=== PATIENT | female | born 1955 | race Asian ===

== ENCOUNTER → 2016-08-03 | Outpatient (CLI) | payer MEDICARE, OTHER ==
[~2016-08-03] MED LIST: ALENDRONATE SOD10 MG; DULOXETINE HCL60 MG PO; ENDOCET 5-3251 EACH PO; HYDROCODONE; LIPITOR40 MG PO; LOPID600 MG; LOPID600 MG PO; METOPROLOL SUCC25 MG PO; NEURONTIN300 MG; PAXIL PO; PRILOSEC PO; PRILOSEC20 MG; RA CENTRAL VIT
--- NOTE | ~2016-08-03 | MY11 ---
[facility] A Service of [facility] RADIOLOGY TEXT RESULTS PATIENT: KAMRYN MASON LOCATION: [facility] : 51 UNIT #: [id number] AGE: [address]: Cori Beauchamp DO SEX: F ORDER DR: [id number] [facility]. [place], [place] [address] [id number] O MR#: [id number] Acc #: [id number] NAME: KAMRYN MAOSN : 1955 SEX: F STUDY DATE/TIME: 08/03/2016 12:27 UNIT: [facility] ROOM: STUDY DESCRIPTION: MY Mammogram Screening Dig Crow Attending Physician: Cori Beauchamp M.D. Referring Physician: Cori Beauchamp M.D. Primary Care Physician: Cori Beauchamp M.D. MEDICAL IMAGING REPORT This report is preliminary unless electronic signature is present EXAM Bilateral digital screening mammogram with CAD 08/03/2016 INDICATIONS 61-year-old female for routine screening. No reported problems, no personal or family history of breast cancer. No surgeries. CC and MLO views of the breast were obtained and reviewed with an FDA approved CAD device. COMPARISON STUDIES 07/29/2015, 07/13/2014 Comparison also made with 07/09/2013. FINDINGS Breast parenchyma is composed of scattered fibroglandular densities. The pattern is unchanged. There is no new dominant nodule, mass or suspicious cluster of microcalcifications. Benign calcification in the right breast. IMPRESSION Negative screening mammogram. 1 year followup recommended. Patients over the age of 40 are entered into a reminder system with target due date for the next mammogram. A result letter will also be sent to the patient. BIRADS: 1 - Negative Dictated by... Dajuan Muñoz M.D. THIS IS AN ELECTRONICALLY VERIFIED REPORT Dajuan Muñoz M.D. at 08/04/2016 12:01 PM [facility] A Service of [facility] RADIOLOGY TEXT RESULTS PATIENT: KAMRYN MASON LOCATION: [facility] : 51 UNIT #: [id number] AGE: [address]: Cori Beauchamp DO SEX: F ORDER DR: CLEMENT/kulwinder TD: 08/03/2016 17:12 JOB #: [id number] MEDICAL IMAGING REPORT COPY
--- NOTE | ~2016-08-03 | BD1 ---
[facility] A Service of [facility] RADIOLOGY TEXT RESULTS PATIENT: KAMRYN MASON LOCATION: [facility] : 51 UNIT #: [id number] AGE: [address]: Cori Beauchamp DO SEX: F ORDER DR: [id number] [facility] [address] [facility]. [place], [place] [address] [id number] O MR#: [id number] Acc #: [id number] NAME: KAMRYN MASON : 1955 SEX: F STUDY DATE/TIME: 08/03/2016 12:41 UNIT: [facility] ROOM: STUDY DESCRIPTION: BD Dexa Bone Dens 1+ Site Attending Physician: Cori Beauchamp M.D. Referring Physician: Cori Beauchamp M.D. Primary Care Physician: Cori Beauchamp M.D. MEDICAL IMAGING REPORT This report is preliminary unless electronic signature is present EXAM Bone density spine hip 08/03/2016 HISTORY Cervical fusion, hysterectomy. Smoker 25-year history. Current smoker. FINDINGS Bone mineral density scanning performed through the upper 4 lumbar vertebral segments and proximal left femur in a 61-year-old 116-pound female. Comparison 05/19/2012. Total bone mineral density upper 4 lumbar vertebral segments 0.917 g per square centimeter for a T-score 1.2 standard deviations below mean for a reference population normal young individuals and a Z-score 0.5 standard deviations above mean for age-match population. Compared to prior examination there has been a 9.3% increase in bone mineral density in the upper 4 lumbar vertebral segments overall. This is felt to be statistically significant. Proximal left femur: Total bone mineral density 0.707 g square centimeter for a T-score 1.9 standard deviations below mean for a reference population normal young individuals and a Z-score 0.8 standard deviations below mean for age-matched population. In the left femoral neck specifically bone mineral density is 0.591 g per square centimeter for a T-score 2.3 standard deviations below mean for a reference population normal young individuals and a Z-score 0.97 standard deviations below mean for age-match population. Using total bone mineral density as trending value in this region there has been a 4.3% increase in bone mineral density in the proximal left femur compared to 05/19/2012. This is felt to be statistically significant. IMPRESSION 1. Osteopenia in the left femoral neck. Patient is felt to be at increased risk for fracture. Treatment options may be considered. Continued surveillance is recommended. Incidental note made of osteopenia in the upper 4 lumbar vertebral segments overall as well. [facility] A Service of [facility] RADIOLOGY TEXT RESULTS PATIENT: KAMRYN MASON LOCATION: [facility] : 51 UNIT #: [id number] AGE: [address]: Cori Beauchamp DO SEX: F ORDER DR: 2. Statistically significant increases in overall bone mineral density L1-L4 and proximal left femur compared to May 2012. See complete trending data in body of report. 1. Dictated by... Juventino Ames M.D. THIS IS AN ELECTRONICALLY VERIFIED REPORT Juventino Ames M.D. at 08/08/2016 7:53 AM Katina TD: 08/06/2016 10:43 JOB #: [id number] MEDICAL IMAGING REPORT COPY
== END | disposition home or self-care (01) ==
LOC: CWCC 12:02
DX: Z12.31 Encounter for screening mammogram for malignant neoplasm of breast (principal); M81.0 Age-related osteoporosis without current pathological fracture; M85.89 Other specified disorders of bone density and structure, multiple sites
CPT/HCPCS: 77080; G0202

== ENCOUNTER → 2016-08-24 | Outpatient (CLI) | payer MEDICARE, OTHER ==
--- NOTE | ~2016-08-24 | CT138 ---
[facility] A Service of [facility] RADIOLOGY TEXT RESULTS PATIENT: KAMRYN MASON LOCATION: [facility] : 51 UNIT #: [id number] AGE: [address]: Cori Beauchamp DO SEX: F ORDER DR: [id number] [address] [address] [id number] O MR#: [id number] Acc #: [id number] NAME: KAMRYN MASON : 1955 SEX: F STUDY DATE/TIME: 08/24/2016 14:37 UNIT: [facility] ROOM: STUDY DESCRIPTION: CT Lung screening initial Attending Physician: Cori Beauchamp M.D. Referring Physician: Cori Beauchamp M.D. Ordering Physician: Cori Beauchamp M.D. Primary Care Physician: Cori Beauchamp M.D. MEDICAL IMAGING REPORT This report is preliminary unless electronic signature is present EXAM CT lung cancer screening. INDICATIONS Lung cancer screening. 37.5 pack year smoking history. PROCEDURE Unenhanced low-dose CT of the chest performed per lung cancer screening protocol CTDI is 2.95 mGy. Total DLP 126 mGy-cm. COMPARISON None. TECHNIQUE This CT exam was performed with one or more of the following radiation dose reduction techniques: automatic control, adjustment of mA and/or kV according to patient size, and iterative reconstruction. FINDINGS Significant emphysema and biapical scarring. 5 mm multilobulated nodule in the left lower lobe. No pleural fluid or pneumothorax. No adenopathy. Coronary artery calcification. No acute findings in the included upper abdomen. No aggressive appearing bone lesion. IMPRESSION 1. Significant emphysema. 2. A 5 mm multilobulated nodule in the left lower lobe. 3. LungRADS category 3 probably benign. Per the ACR LungRADS recommendations suggest patient return for a 6-month followup low-dose chest CT. Dictated by... [facility] A Service [facility] RADIOLOGY TEXT RESULTS PATIENT: KAMRYN MASON LOCATION: [facility] : 51 UNIT #: [id number] AGE: [address]: Cori Beauchamp DO SEX: F ORDER DR: Jeff Mccabe M.D. THIS IS AN ELECTRONICALLY VERIFIED REPORT Jeff Mccabe M.D. at 08/27/2016 7:21 AM PARUL/beverley TD: 08/24/2016 23:38 JOB #: [id number] MEDICAL IMAGING REPORT COPY
== END | disposition home or self-care (01) ==
LOC: CCAT 14:21
DX: F17.210 Nicotine dependence, cigarettes, uncomplicated (principal); J43.9 Emphysema, unspecified; R91.1 Solitary pulmonary nodule
CPT/HCPCS: G0297